=== PATIENT | female | born 1970 | race Caucasian/White ===

== ENCOUNTER 2022-01-09 23:33 | Emergency (ER) | payer OTHER ==
[~2022-01-09] VITALS: Ht 165.1 cm; Wt 112.0 kg
[2022-01-10 00:30] VITALS: BP 97/54
[2022-01-10 01:00] VITALS: BP 98/51
[2022-01-10 01:30] VITALS: BP 86/47
[2022-01-10 02:00] VITALS: BP 85/50
[2022-01-10] MEDS ORDERED: PEPCID20 MG PO (02:02)
[2022-01-10] MEDS ORDERED: MEDDOSEPAK PO (02:02)
[2022-01-10] MEDS ORDERED: EPIPEN 2-P0.3 MG/0.3 SC (02:02)
[2022-01-10] MEDS ORDERED: DIPHENHYDRAM50 M2 PO (02:02)
[2022-01-10 02:14] VITALS: BP 101/75
== END 2022-01-10 02:14 | disposition home or self-care (01) | DRG 918 ==
LOC: ED 23:33
DX: T63.461A Toxic effect of venom of wasps, accidental (unintentional), initial encounter (principal); R22.0 Localized swelling, mass and lump, head; R21 Rash and other nonspecific skin eruption; E03.9 Hypothyroidism, unspecified

== ENCOUNTER 2022-03-04 04:14 | Emergency (ER) | payer OTHER ==
[~2022-03-04] VITALS: Ht 165.1 cm; Wt 109.0 kg
[~2022-03-04 04:14] MED LIST: DIPHENHYDRAM50 M2 PO; EPIPEN 2-P0.3 MG/0.3 SC; MEDDOSEPAK PO; PEPCID20 MG PO
[2022-03-04 04:30] VITALS: BP 132/74
[2022-03-04 05:17] LABS: HEMATOCRIT 46.6 % (37.0-47.0); HEMOGLOBIN 14.9 g/dl (12.0-16.0); IMMATURE GRANULOCYTES 0.1 % (0.0-5.0); MEAN CELL VOLUME 97.5 fL CALC (80.0-100.0); MEAN CORPUSCULAR HGB 31.2 pG CALC (26.0-32.0); NEUT# 2.75 thou/uL (2.00-7.15); RED BLOOD COUNT 4.78 mill/uL (4.20-5.60); RED CELL DISTRI WIDTH 14.2 % (11.5-15.5)
[2022-03-04] MEDS ORDERED: PAXLOVID PO (06:35)
[2022-03-04 06:58] LABS: ALKALINE PHOSPHATASE 82 u/l (38-126); BILIRUBIN, TOTAL 0.4 mg/dL (0.0-1.4); BUN 10 mg/dL (7-17); BUN/CREATININE RATIO 14 (12-20 (CALC)); CARBON DIOXIDE 23 mmol/l (22-30); CHLORIDE 107 mmol/l (95-108); CREATININE 0.7 mg/dL (0.5-1.0); GFR FOR AFR.AMER. > 60 ML/MIN (>=60 (CALC)); GFR OTHER RACES > 60 ML/MIN (>=60 (CALC)); SGOT/AST 30 u/l (14-36); SODIUM 139 mmol/l (137-146); TOTAL PROTEIN 6.7 g/dL (6.3-8.2)
[2022-03-04 07:00] LABS: ANION GAP 13 (6-22 (CALC)); POTASSIUM 3.7 mmol/l (3.5-5.1)
== END 2022-03-04 07:24 | disposition home or self-care (01) | DRG 179 ==
LOC: ED 04:14
PROVIDERS: Emergency Medicine
DX: U07.1 COVID-19 (principal); R05.9 Cough, unspecified; R06.02 Shortness of breath; M79.10 Myalgia, unspecified site; R11.2 Nausea with vomiting, unspecified; E03.9 Hypothyroidism, unspecified